=== PATIENT | male | born 1965 | race American Indian/Alaskan Native ===

== ENCOUNTER 2016-11-07 04:54 | Emergency (ER) | payer OTHER ==
[2016-11-07 05:39] LABS: Basophils % (Auto) 0.5 % (0.0-1.8); Eosinophils % (Auto) 2.4 % (0.0-4.3); Hemoglobin 11.9 gm/dl (11.8-15.2); Mean Corpuscular HGB Conc 33 % (32-34); Mean Corpuscular Hemoglobin 29 pg (28-32); Mean Corpuscular Volume 89 fl (84-94); Platelet Count 337 K/mm3 (140-440); Red Blood Count 4.05 M/mm3 (3.65-5.03); Red Cell Distribution Width 13.4 % (13.2-15.2); White Blood Count 9.9 K/mm3 (4.5-11.0)
[2016-11-07 05:43] LABS: Alanine Aminotransferase 23 units/L (7-56); Albumin/Globulin Ratio 1.9 %; Anion Gap 18 mmol/L; Bilirubin,Total < 0.20 mg/dL (0.1-1.2); Blood Urea Nitrogen 19 mg/dL (9-20); Calcium 10.4 mg/dL (8.4-10.2); Carbon Dioxide 27 mmol/L (22-30); Chloride 100.7 mmol/L (98-107); Glucose 184 mg/dL (75-100); Lipase 52 units/L (13-60); Potassium 4.5 mmol/L (3.6-5.0); Sodium 141 mmol/L (137-145); Total Protein 7.7 g/dL (6.3-8.2)
[2016-11-07 06:09] LABS: Bilirubin,Urine NEG (Negative); Blood,Urine NEG (Negative); Ketones,Urine NEG (Negative); Leukocyte Esterase,Urine NEG (Negative); Mucus,Urine FEW /HPF; Nitrite,Urine NEG (Negative); Protein,Urine <15 mg/dL mg/dL (Negative); Urobilinogen,Urine < 2.0 mg/dL (<2.0)
[2016-11-07 06:22] LABS: Alkaline Phosphatase 55 units/L (35-129)
[2016-11-07] MEDS ORDERED: SUBLIMAZE IV ONE (08:53)
[2016-11-07] MEDS ORDERED: ZOFRAN IV ONE (08:53)
[2016-11-07] MEDS ORDERED: PEPCID IV ONE (08:54)
[2016-11-07] MEDS ORDERED: NACL ONE (08:55)
--- NOTE | 2016-11-07 09:00 | Emergency Department Report ---
HPI - General Chief Complaint: Abdominal Pain Time Seen by Provider: 11/07/16 08:47 - HPI HPI: Room 24 The patient is a 51-year-old male presenting with a chief complaint of abdominal pain. Patient states pain began last night with pain in the right upper quadrant that then migrated to the epigastric region. Patient describes the pain as cramping in nature and associated with nausea and vomiting. Patient denies diarrhea or fever. Patient states pain has been constant since 03:00. The patient gives his pain a score of 10/10 Location: Abdomen Duration: Constant since 03:00 Quality: Cramping Severity:10/10 Modifying factors: [see above] Context: [see above] Mode of transportation: [not driving] ED Past Medical Hx - Past Medical History Previous Medical History?: Yes Hx Hypertension: Yes Hx Heart Attack/AMI: (patient states he has 3 stents in his heart) Hx Diabetes: Yes Additional medical history: CAD - Surgical History Past Surgical History?: Yes Additional Surgical History: 3 cardiac stents - Family History Family history: no significant - Social History Smoking Status: Never Smoker Substance Use Type: Alcohol (occasional) - Medications Home Medications: Home Medications Medication Instructions Recorded Confirmed Last Taken Type Rosuvastatin (Nf) [Crestor] 80 mg PO QHS 05/03/13 08/11/15 08/10/15 History AtorvaSTATin [Lipitor] 80 mg PO QHS tablet 08/13/15 Unknown Rx Clopidogrel [Plavix] 75 mg PO QDAY tablet 08/13/15 Unknown Rx Ezetimibe [Zetia] 10 mg PO QDAY tablet 08/13/15 Unknown Rx HYDROcodone/APAP 5-325 [[place] 1 each PO Q6H PRN #20 tablet 08/13/15 Unknown Rx 5-325 mg TAB] Lactulose [Cephulac] 20 gm PO QHS 30 Days 08/13/15 Unknown Rx Lisinopril [Zestril TAB] 20 mg PO QDAY tablet 08/13/15 Unknown Rx Metoprolol [Lopressor TAB] 25 mg PO DAILY tablet 08/13/15 Unknown Rx Pantoprazole [Protonix TAB] 40 mg PO QDAY tablet 08/13/15 Unknown Rx metFORMIN [Glucophage] 850 mg PO QDDIAB tablet 08/13/15 Unknown Rx Famotidine [Pepcid] 20 mg PO BID #30 tablet 05/07/17 Unknown Rx HYDROcodone/APAP 5-325 [[place] 1 - 2 each PO Q6HR PRN #14 tablet 11/07/16 Unknown Rx 5/325] Promethazine [Phenergan TAB] 25 mg PO Q6HR PRN #20 tab 11/07/16 Unknown Rx ED Review of Systems ROS: Stated complaint: ABD PAIN Other details as noted in HPI Comment: All other systems reviewed and negative Constitutional: denies: chills, fever Eyes: denies: eye pain, eye discharge, vision change ENT: denies: ear pain, throat pain Respiratory: denies: cough, shortness of breath, wheezing Cardiovascular: denies: chest pain, palpitations Endocrine: no symptoms reported Gastrointestinal: abdominal pain, nausea, vomiting Genitourinary: denies: urgency, dysuria Musculoskeletal: denies: back pain, joint swelling, arthralgia Skin: denies: rash, lesions Neurological: denies: headache, weakness, paresthesias Psychiatric: denies: anxiety, depression Hematological/Lymphatic: denies: easy bleeding, easy bruising Physical Exam - Physical Exam Vital Signs: Vital Signs 11/07/16 11/07/16 11/07/16 04:58 07:52 07:53 Temperature 98.1 F 98.4 F Pulse Rate 71 82 Respiratory 18 16 16 Rate Blood Pressure 147/96 Blood Pressure 163/89 [Right] O2 Sat by Pulse 100 97 97 Oximetry Physical Exam: GENERAL: The patient is well-developed well-nourished []. [] HEENT: Normocephalic. Atraumatic. Extraocular motions are intact. Patient has moist mucous membranes. NECK: Supple. Trachea midline CHEST/LUNGS: Clear to auscultation. There is no respiratory distress noted. HEART/CARDIOVASCULAR: Regular. There is no tachycardia. There is no gallop rub or murmur. ABDOMEN: Patient exhibits some voluntary guarding. Patient exhibits tenderness to palpation in the right upper quadrant epigastric region. Patient has normal bowel sounds. There is no abdominal distention. SKIN: There is no rash. There is no edema. There is no diaphoresis. NEURO: The patient is awake, alert, and oriented. The patient is cooperative. The patient has normal speech MUSCULOSKELETAL:There is no evidence of acute injury. ED Course Vital Signs 11/07/16 11/07/16 11/07/16 04:58 07:52 07:53 Temperature 98.1 F 98.4 F Pulse Rate 71 82 Respiratory 18 16 16 Rate Blood Pressure 147/96 Blood Pressure 163/89 [Right] O2 Sat by Pulse 100 97 97 Oximetry ED Medical Decision Making - Lab Data Result diagrams: 11/07/16 05:06 11/07/16 05:16 Laboratory Tests 11/07/16 11/07/16 11/07/16 05:06 05:16 05:30 WBC 9.9 RBC 4.05 Hgb 11.9 Hct 36.0 MCV 89 MCH 29 MCHC 33 RDW 13.4 Plt Count 337 Lymph % (Auto) 23.1 [place] % (Auto) 7.3 Eos % (Auto) 2.4 Baso % (Auto) 0.5 Lymph # 2.3 [place] # 0.7 Eos # 0.2 Baso # 0.1 Seg Neutrophils % 66.7 Seg Neutrophils # 6.6 Sodium 141 Potassium 4.5 Chloride 100.7 Carbon Dioxide 27 Anion Gap 18 BUN 19 Creatinine 1.0 Estimated GFR > 60 BUN/Creatinine Ratio 19.00 Glucose 184 H Calcium 10.4 H Total Bilirubin < 0.20 AST 19 ALT 23 Alkaline Phosphatase 55 Total Protein 7.7 Albumin 5.0 Albumin/Globulin Ratio 1.9 Lipase 52 Urine Color Yellow Urine Turbidity Clear Urine pH 5.0 Ur Specific [place] 1.021 Urine Protein <15 mg/dl Urine Glucose (UA) >=500 Urine Ketones Neg Urine Blood Neg Urine Nitrite Neg Urine Bilirubin Neg Urine Urobilinogen < 2.0 Ur Leukocyte Esterase Neg Urine WBC (Auto) 1.0 Urine RBC (Auto) 1.0 Urine Mucus Few - Radiology Data Radiology results: report reviewed (CT abdomen and pelvis), image reviewed (CT abdomen and pelvis) CT abdomen and pelvis (read by radiologist)-fluid-filled loops of bowel are identified throughout the abdomen. This could represent gastroenteritis or ileus. No convincing intestinal obstruction. No acute inflammatory process is appreciated. - Differential Diagnosis symptomatic cholelithiasis, pancreatitis, GERD, peptic ulcer disease, appen Critical care attestation.: If time is entered above; I have spent that time in minutes in the direct care of this critically ill patient, excluding procedure time. ED Disposition Clinical Impression: Acute abdominal pain Disposition: DISCHARGED TO HOME OR SELFCARE Is pt being admited?: No Does the pt Need Aspirin: No Condition: Stable Instructions: Acute Abdominal Pain (ED) Additional Instructions: Return to the emergency department immediately should you develop worsening symptoms, fever, inability to tolerate food or liquid or any other concerns. Prescriptions: Famotidine [Pepcid] 20 mg PO BID #30 tablet HYDROcodone/APAP 5-325 [[place] 5/325] 1 - 2 each PO Q6HR PRN #14 tablet PRN Reason: Pain Promethazine [Phenergan TAB] 25 mg PO Q6HR PRN #20 tab PRN Reason: Nausea Referrals: PRIMARY CARE, [Primary Care Provider] - 3-5 Days LIBBY WHITESIDE MD [Staff Physician] - 3-5 Days (Dr. 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 Please follow up with him for further evaluation) Time of Disposition: 10:25
[2016-11-07 09:27] VITALS: BP 134/77
--- NOTE | 2016-11-07 09:49 | Cat Scan Report ---
CT SCAN OF THE ABDOMEN AND PELVIS WITH CONTRAST: HISTORY: Right sided abdominal pain, epigastric abdominal pain. COMPARISON: 07/05/16. TECHNIQUE: Helical CT in 1.25mm intervals following IV contrast. Sagittal and coronal reconstructions. FINDINGS: The liver is normal in size and is without focal defect. No gallstones or biliary dilatation are noted. The spleen and pancreas demonstrate a normal size and attenuation with no evidence of abnormal mass. The kidneys are normal in size and position with no evidence of hydronephrosis or mass. The adrenal glands are normal. The abdominal aorta is normal. The small or large bowel loop so are normal caliber but appear fluid filled. No focal inflammation, transition point or bowel wall thickening. The appendix is not confidently identified. There is no evidence of peritoneal air or fluid. There is no evidence of any abnormal masses or fluid collections within the pelvis. No adenopathy is identified. The bladder is normal. IMPRESSION: Fluid filled loops of bowel are identified throughout the abdomen. This could represent gastroenteritis or ileus. No convincing intestinal obstruction. No acute inflammatory process is appreciated.
== END 2016-11-07 10:45 | disposition home or self-care (01) ==
LOC: ED 04:54
DX: R10.11 Right upper quadrant pain (principal); R10.13 Epigastric pain; I10 Essential (primary) hypertension; E11.9 Type 2 diabetes mellitus without complications
CPT/HCPCS: 36415; 74177; 80053; 81001; 83690; 85025; 96374; 96375; 99284; J2405; J3010; Q9967

== ENCOUNTER 2017-01-16 03:53 | Emergency (ER) | payer OTHER ==
[2017-01-16 04:33] VITALS: BP 108/60
[2017-01-16 05:28] LABS: Basophils % (Auto) 0.3 % (0.0-1.8); Eosinophils % (Auto) 1.5 % (0.0-4.3); Hematocrit 28.9 % (35.5-45.6); Hemoglobin 9.8 gm/dl (11.8-15.2); Mean Corpuscular HGB Conc 34 % (32-34); Mean Corpuscular Hemoglobin 30 pg (28-32); Mean Corpuscular Volume 87 fl (84-94); Platelet Count 301 K/mm3 (140-440); Red Blood Count 3.32 M/mm3 (3.65-5.03); Red Cell Distribution Width 13.1 % (13.2-15.2); White Blood Count 9.3 K/mm3 (4.5-11.0)
[2017-01-16 05:38] LABS: Anion Gap 23 mmol/L; Blood Urea Nitrogen 32 mg/dL (9-20); Calcium 8.9 mg/dL (8.4-10.2); Carbon Dioxide 20 mmol/L (22-30); Chloride 94.9 mmol/L (98-107); Glucose 124 mg/dL (75-100); Potassium 4.8 mmol/L (3.6-5.0); Sodium 133 mmol/L (137-145)
== END 2017-01-16 05:30 | disposition left against medical advice (07) ==
LOC: ED 03:53
DX: R07.9 Chest pain, unspecified (principal); Z53.21 Procedure and treatment not carried out due to patient leaving prior to being seen by health care provider
CPT/HCPCS: 36415; 80048; 82962; 84484; 85025; 93005; 93010

== ENCOUNTER 2017-02-13 06:57 | Emergency (ER) | payer OTHER ==
[2017-02-13 07:32] VITALS: BP 135/86
[2017-02-13 07:59] LABS: Basophils % (Auto) 0.7 % (0.0-1.8); Eosinophils % (Auto) 2.3 % (0.0-4.3); Hematocrit 32.4 % (35.5-45.6); Hemoglobin 10.5 gm/dl (11.8-15.2); Mean Corpuscular HGB Conc 33 % (32-34); Mean Corpuscular Hemoglobin 28 pg (28-32); Mean Corpuscular Volume 87 fl (84-94); Platelet Count 289 K/mm3 (140-440); Red Blood Count 3.72 M/mm3 (3.65-5.03); Red Cell Distribution Width 12.9 % (13.2-15.2); White Blood Count 6.2 K/mm3 (4.5-11.0)
[2017-02-13 08:42] LABS: Anion Gap 18 mmol/L; BUN/Creatinine Ratio 26.25; Blood Urea Nitrogen 21 mg/dL (9-20); Calcium 10.1 mg/dL (8.4-10.2); Carbon Dioxide 26 mmol/L (22-30); Chloride 100.9 mmol/L (98-107); Glucose 124 mg/dL (75-100); Potassium 4.6 mmol/L (3.6-5.0); Sodium 140 mmol/L (137-145)
--- NOTE | 2017-02-13 09:42 | Emergency Department Report ---
HPI - General Chief Complaint: Chest Pain Time Seen by Provider: 02/13/17 09:26 ED Past Medical Hx - Past Medical History Previous Medical History?: Yes Hx Hypertension: Yes Hx Heart Attack/AMI: (patient states he has 3 stents in his heart) Hx Congestive Heart Failure: No Hx Diabetes: Yes Hx GERD: Yes Hx Asthma: No Hx COPD: No Hx HIV: No Additional medical history: CAD - Surgical History Past Surgical History?: Yes Additional Surgical History: 3 cardiac stents - Social History Smoking Status: Never Smoker Substance Use Type: Alcohol - Medications Home Medications: Home Medications Medication Instructions Recorded Confirmed Last Taken Type Rosuvastatin (Nf) [Crestor] 80 mg PO QHS 05/03/13 08/11/15 08/10/15 History AtorvaSTATin [Lipitor] 80 mg PO QHS tablet 08/13/15 Unknown Rx Clopidogrel [Plavix] 75 mg PO QDAY tablet 08/13/15 Unknown Rx Ezetimibe [Zetia] 10 mg PO QDAY tablet 08/13/15 Unknown Rx HYDROcodone/APAP 5-325 [[place] 1 each PO Q6H PRN #20 tablet 08/13/15 Unknown Rx 5-325 mg TAB] Lactulose [Cephulac] 20 gm PO QHS 30 Days 08/13/15 Unknown Rx Lisinopril [Zestril TAB] 20 mg PO QDAY tablet 08/13/15 Unknown Rx Metoprolol [Lopressor TAB] 25 mg PO DAILY tablet 08/13/15 Unknown Rx Pantoprazole [Protonix TAB] 40 mg PO QDAY tablet 08/13/15 Unknown Rx metFORMIN [Glucophage] 850 mg PO QDDIAB tablet 08/13/15 Unknown Rx Famotidine [Pepcid] 20 mg PO BID #30 tablet 11/07/16 Unknown Rx HYDROcodone/APAP 5-325 [[place] 1 - 2 each PO Q6HR PRN #14 tablet 11/07/16 Unknown Rx 5/325] Promethazine [Phenergan TAB] 25 mg PO Q6HR PRN #20 tab 11/07/16 Unknown Rx ED Review of Systems ROS: Stated complaint: CHEST PAIN Other details as noted in HPI Physical Exam - Physical Exam Vital Signs: Vital Signs 02/13/17 07:30 Temperature 98.2 F Pulse Rate 57 L Respiratory 16 Rate Blood Pressure 135/86 O2 Sat by Pulse 100 Oximetry ED Course Vital Signs 02/13/17 07:30 Temperature 98.2 F Pulse Rate 57 L Respiratory 16 Rate Blood Pressure 135/86 O2 Sat by Pulse 100 Oximetry ED Medical Decision Making - Lab Data Result diagrams: 02/13/17 07:44 02/13/17 07:44 - Medical Decision Making I was unable to evaluate this patient. The left the room prior to my evaluation. He did have an unremarkable EKG and his labs were unremarkable. Critical care attestation.: If time is entered above; I have spent that time in minutes in the direct care of this critically ill patient, excluding procedure time. ED Disposition Clinical Impression: Patient left without being seen Disposition: Z07 ELOPED Is pt being admited?: No Condition: Stable Referrals: PRIMARY CARE, [Primary Care Provider] - 3-5 Days
== END 2017-02-13 09:41 | disposition left against medical advice (07) ==
LOC: ED 06:57
DX: R07.9 Chest pain, unspecified (principal); I10 Essential (primary) hypertension
CPT/HCPCS: 36415; 80048; 84484; 85025; 93005; 93010

== ENCOUNTER 2017-03-16 04:56 | Emergency (ER) | payer OTHER ==
[2017-03-16 05:34] LABS: Basophils % (Auto) 0.5 % (0.0-1.8); Eosinophils % (Auto) 1.5 % (0.0-4.3); Hematocrit 31.5 % (35.5-45.6); Hemoglobin 10.8 gm/dl (11.8-15.2); Mean Corpuscular HGB Conc 34 % (32-34); Mean Corpuscular Hemoglobin 29 pg (28-32); Mean Corpuscular Volume 84 fl (84-94); Platelet Count 355 K/mm3 (140-440); Red Blood Count 3.75 M/mm3 (3.65-5.03); Red Cell Distribution Width 12.5 % (13.2-15.2); White Blood Count 5.7 K/mm3 (4.5-11.0)
[2017-03-16 05:56] LABS: Alanine Aminotransferase 81 units/L (7-56); Albumin 4.3 g/dL (3.9-5); Albumin/Globulin Ratio 1.3 %; Alkaline Phosphatase 58 units/L (35-129); Anion Gap 22 mmol/L; Blood Urea Nitrogen 12 mg/dL (9-20); Calcium 10.4 mg/dL (8.4-10.2); Carbon Dioxide 21 mmol/L (22-30); Chloride 104.3 mmol/L (98-107); Glucose 95 mg/dL (75-100); Lipase 55 units/L (13-60); Potassium 4.5 mmol/L (3.6-5.0); Sodium 143 mmol/L (137-145); Total Protein 7.5 g/dL (6.3-8.2)
[2017-03-16 06:41] LABS: Bilirubin,Urine NEG (Negative); Blood,Urine NEG (Negative); Ketones,Urine NEG (Negative); Leukocyte Esterase,Urine NEG (Negative); Mucus,Urine FEW /HPF; Nitrite,Urine NEG (Negative); Protein,Urine <15 mg/dL mg/dL (Negative); Urobilinogen,Urine < 2.0 mg/dL (<2.0)
[2017-03-16 09:57] VITALS: BP 148/89
[2017-03-16] MEDS ORDERED: NORCO 5/325 PO ONE (10:12)
--- NOTE | 2017-03-16 10:19 | Emergency Department Report ---
HPI - General Chief Complaint: Abdominal Pain Time Seen by Provider: 03/16/17 09:44 - HPI HPI: This is a 52-year-old [place] male presents to the emergency department, dropped off by family member, with complaint of right-sided abdominal pain that started yesterday. He denies any nausea, vomiting, fever, dysuria. Patient says that he has a history of pain in this region and has been evaluated multiple times including multiple CT scans and endoscopy and was told that he has a "ulcer." He also says that there was "something on my kidney." He has not taken anything for her symptoms prior to presentation. His primary care physician is Dr. Kamryn Bullock and his hydrogenation operator is a Dr. Sheriff through [place]. He has a past medical history of diabetes, coronary artery disease with 3 stents, hypertension. No recent travel or sick contacts at home. ED Past Medical Hx - Past Medical History Previous Medical History?: Yes Hx Hypertension: Yes Hx Heart Attack/AMI: (patient states he has 3 stents in his heart) Hx Congestive Heart Failure: No Hx Diabetes: Yes Hx GERD: Yes Hx Asthma: No Hx COPD: No Hx HIV: No Additional medical history: CAD - Surgical History Past Surgical History?: Yes Additional Surgical History: 3 cardiac stents - Social History Smoking Status: Never Smoker Substance Use Type: Alcohol - Medications Home Medications: Home Medications Medication Instructions Recorded Confirmed Last Taken Type Rosuvastatin (Nf) [Crestor] 80 mg PO QHS 05/03/13 08/11/15 08/10/15 History AtorvaSTATin [Lipitor] 80 mg PO QHS tablet 08/13/15 Unknown Rx Clopidogrel [Plavix] 75 mg PO QDAY tablet 08/13/15 Unknown Rx Ezetimibe [Zetia] 10 mg PO QDAY tablet 08/13/15 Unknown Rx Lactulose [Cephulac] 20 gm PO QHS 30 Days 08/13/15 Unknown Rx Lisinopril [Zestril TAB] 20 mg PO QDAY tablet 08/13/15 Unknown Rx Metoprolol [Lopressor TAB] 25 mg PO DAILY tablet 08/13/15 Unknown Rx Pantoprazole [Protonix TAB] 40 mg PO QDAY tablet 08/13/15 Unknown Rx metFORMIN [Glucophage] 850 mg PO QDDIAB tablet 08/13/15 Unknown Rx Famotidine [Pepcid] 20 mg PO BID #30 tablet 11/07/16 Unknown Rx HYDROcodone/APAP 5-325 [[place] 1 - 2 each PO Q6HR PRN #14 tablet 11/07/16 Unknown Rx 5/325] Promethazine [Phenergan TAB] 25 mg PO Q6HR PRN #20 tab 11/07/16 Unknown Rx HYDROcodone/APAP 5-325 [[place] 1 each PO Q6H PRN #10 tablet 03/16/17 Unknown Rx 5-325 mg TAB] ED Review of Systems ROS: Stated complaint: RIGHT SIDE PAIN Other details as noted in HPI Comment: All other systems reviewed and negative Constitutional: denies: chills, fever Eyes: denies: eye pain, eye discharge, vision change ENT: denies: ear pain, throat pain Respiratory: denies: cough, shortness of breath, wheezing Cardiovascular: denies: chest pain, palpitations Gastrointestinal: abdominal pain. denies: nausea, vomiting Genitourinary: denies: urgency, dysuria Musculoskeletal: denies: back pain, joint swelling, arthralgia Skin: denies: rash, lesions Neurological: denies: headache, weakness, paresthesias Physical Exam - Physical Exam Vital Signs: Vital Signs 03/16/17 03/16/17 03/16/17 05:03 09:56 09:57 Temperature 98 F 98.3 F Pulse Rate 95 H 88 Respiratory 18 16 16 Rate Blood Pressure 149/88 Blood Pressure 148/89 [Right] O2 Sat by Pulse 98 98 98 Oximetry Physical Exam: GENERAL: The patient is well-developed well-nourished. HENT: Normocephalic. Atraumatic. Patient has moist mucous membranes. EYES: Extraocular motions are intact. Pupils equal reactive to light bilaterally. NECK: Supple. Trachea is midline. CHEST/LUNGS: Clear to auscultation. There is no respiratory distress noted. HEART/CARDIOVASCULAR: Regular. There is no tachycardia. There is no gallop rub or murmur. ABDOMEN: Abdomen is soft, nontender. Unable to reproduce abdominal and/or flank pain palpation. No guarding or rebound tenderness. Patient has normal bowel sounds. There is no abdominal distention. SKIN: There is no rash. There is no edema. There is no diaphoresis. NEURO: The patient is awake, alert, and oriented. The patient is cooperative. The patient has no focal neurologic deficits. The patient has normal speech. MUSCULOSKELETAL: There is no tenderness or deformity. There is no limitation range of motion. There is no evidence of acute injury. ED Course Vital Signs 03/16/17 03/16/17 03/16/17 05:03 09:56 09:57 Temperature 98 F 98.3 F Pulse Rate 95 H 88 Respiratory 18 16 16 Rate Blood Pressure 149/88 Blood Pressure 148/89 [Right] O2 Sat by Pulse 98 98 98 Oximetry ED Medical Decision Making - Lab Data Result diagrams: 03/16/17 05:20 03/16/17 05:20 - Radiology Data Radiology results: report reviewed, image reviewed interpreted by me: Abdominal x-ray does not show any acute process. Nonspecific nonobstructive bowel gas. ULTRASOUND RENAL BILATERAL INDICATION: Flank pain. COMPARISON: 07/05/2016 CT. FINDINGS: Renal sonography demonstrates top normal cortical echogenicity. Grossly preserved contours. No hydronephrosis. RIGHT KIDNEY is 10.5 x 4.9 x 5.4 cm with cortical thickness of 1.7 cm. Approximately 8 mm interpolar non-shadowing echogenicity, not excluded cortical in this patient with duplicated intrarenal collecting system also questioned. LEFT KIDNEY is 9.8 x 6.2 x 6.4 cm with cortical thickness of 1.5 cm. Urinary bladder grossly within normal limits. CONCLUSION: No acute renal sonographic abnormality in this patient with possible medullary nephrocalcinosis, as described. Please correlate. Thank you for the opportunity to participate in this patient's care. Transcribed By: RS Dictated By: ALEAH KELLY MD Electronically Authenticated By: ALEAH KELLY MD Signed Date/Time: 03/16/17 1130 ULTRASOUND ABDOMEN LIMITED INDICATION: Abdominal pain. COMPARISON: None similar. FINDINGS: Right upper quadrant ultrasound demonstrates unremarkable liver. No gallstones or pericholecystic fluid. Gallbladder wall thickness is 1.8 mm. Negative sonographic Collado's sign. Common bile duct is 3.6 mm. Imaged pancreas, nonaneurysmal abdominal aorta and IVC appear within normal limits. Right kidney is 10.5 x 4.9 x 5.4 cm with cortical thickness of 1.7 cm. Top normal renal cortical echogenicity. Duplicated intrarenal collecting system not entirely excluded. CONCLUSION: Normal right upper quadrant sonogram, as described. Thank you for the opportunity to participate in this patient's care. Transcribed By: RS Dictated By: ALEAH KELLY MD Electronically Authenticated By: ALEAH KELLY MD Signed Date/Time: 03/16/17 1121 - Medical Decision Making 52-year-old male presents to the emergency department with acute on chronic abdominal discomfort. His abdominal examination is rather benign. Vital signs stable including being afebrile. His course. Most labs are unremarkable except for a slight elevation in the transaminases. Abdominal x-ray shows nonspecific nonobstructive bowel gas. A bilateral renal ultrasound was done to evaluate his kidneys and a upper abdominal ultrasound was also done. Both of these ultrasound examinations were normal without any significant acute process or etiology of his discomfort. Patient was given a dose of pain medication and upon reevaluation he is feeling improved. He has good follow up with both primary care and gastroenterology. He has already had multiple CT scans of the abdomen and pelvis within the past 6 months and therefore I did not feel that any further CT imaging was warranted at this time. He will follow up with his primary care and hydrogenation operator and will return to the ER with any worsening of symptoms or any acute distress. - Differential Diagnosis cholecystitis, cholelithiasis, hepatitis, pancreatitis, gastritis Critical Care Time: No Critical care attestation.: If time is entered above; I have spent that time in minutes in the direct care of this critically ill patient, excluding procedure time. ED Disposition Clinical Impression: Elevated LFTs Abdominal pain Qualifiers: Abdominal location: unspecified location Qualified Code(s): R10.9 - Unspecified abdominal pain Disposition: DC- TO HOME OR SELFCARE Is pt being admited?: No Condition: Stable Instructions: Abdominal Pain (ED) Additional Instructions: Please follow-up with your primary care physician as well as your hydrogenation operator as soon as possible. Return to the emergency Department with any worsening of your symptoms or any acute distress. Continue with your Protonix. You have been prescribed a medication that is sedating and therefore should not be taken prior to driving, working, and responsible for children and in no way should be mixed with alcohol of any quantity. Prescriptions: HYDROcodone/APAP 5-325 [[place] 5-325 mg TAB] 1 each PO Q6H PRN #10 tablet PRN Reason: Pain Referrals: KAMRYN BULLOCK MD [Primary Care Provider] - [place] Forms: Work/School Release Form(ED) Time of Disposition: 12:14
--- NOTE | 2017-03-16 10:27 | XRay Report ---
ABDOMEN TWO VIEWS: 03/16/17 10:12:00 CLINICAL: Abdominal pain. FINDINGS: Supine upright views demonstrate a normal bowel gas pattern with a moderately large volume of stool throughout the colon and in the rectum. Minimal distended small bowel and no air-fluid levels. No pneumoperitoneum. No mass or suspicious calcifications. The bones and soft tissues are normal. IMPRESSION: Negative abdomen.
--- NOTE | 2017-03-16 11:24 | Ultrasound Report ---
ULTRASOUND ABDOMEN LIMITED INDICATION: Abdominal pain. COMPARISON: None similar. FINDINGS: Right upper quadrant ultrasound demonstrates unremarkable liver. No gallstones or pericholecystic fluid. Gallbladder wall thickness is 1.8 mm. Negative sonographic Collado's sign. Common bile duct is 3.6 mm. Imaged pancreas, nonaneurysmal abdominal aorta and IVC appear within normal limits. Right kidney is 10.5 x 4.9 x 5.4 cm with cortical thickness of 1.7 cm. Top normal renal cortical echogenicity. Duplicated intrarenal collecting system not entirely excluded. CONCLUSION: Normal right upper quadrant sonogram, as described. Thank you for the opportunity to participate in this patient's care.
--- NOTE | 2017-03-16 11:33 | Ultrasound Report ---
ULTRASOUND RENAL BILATERAL INDICATION: Flank pain. COMPARISON: 07/05/2016 CT. FINDINGS: Renal sonography demonstrates top normal cortical echogenicity. Grossly preserved contours. No hydronephrosis. RIGHT KIDNEY is 10.5 x 4.9 x 5.4 cm with cortical thickness of 1.7 cm. Approximately 8 mm interpolar non-shadowing echogenicity, not excluded cortical in this patient with duplicated intrarenal collecting system also questioned. LEFT KIDNEY is 9.8 x 6.2 x 6.4 cm with cortical thickness of 1.5 cm. Urinary bladder grossly within normal limits. CONCLUSION: No acute renal sonographic abnormality in this patient with possible medullary nephrocalcinosis, as described. Please correlate. Thank you for the opportunity to participate in this patient's care.
== END 2017-03-16 12:24 | disposition home or self-care (01) ==
LOC: ED 04:56
DX: R79.89 Other specified abnormal findings of blood chemistry (principal); R10.9 Unspecified abdominal pain; I10 Essential (primary) hypertension; E11.9 Type 2 diabetes mellitus without complications; K21.9 Gastro-esophageal reflux disease without esophagitis; Z95.1 Presence of aortocoronary bypass graft
CPT/HCPCS: 36415; 74020; 76705; 76770; 80053; 81001; 83690; 85025

== ENCOUNTER 2018-08-14 10:28 | Emergency (ER) | payer OTHER ==
--- NOTE | 2018-08-14 10:52 | Emergency Department Report ---
Chief Complaint: Headache Stated Complaint: HEAD PAIN/RAPID HEART BEAT - HPI History of Present Illness: To ER co rapid heart rate and dizziness RN asked for VS and EKG denies cp or sob. denies history of the same MSE screening note: Focused history and physical exam performed. Due to findings the following was ordered: ED Medical Decision Making - Lab Data Result diagrams: 08/14/18 11:33 08/14/18 11:33 ED Disposition for MSE Condition: Stable
[2018-08-14 10:53] VITALS: BP 108/34
[2018-08-14 12:02] LABS: Hematocrit 28.2 % (35.5-45.6); Hemoglobin 9.3 gm/dl (11.8-15.2); Mean Corpuscular HGB Conc 33 % (32-34); Mean Corpuscular Volume 95 fl (84-94); Platelet Count 450 K/mm3 (140-440); Red Blood Count 2.98 M/mm3 (3.65-5.03)
[2018-08-14 12:17] LABS: Alanine Aminotransferase 17 units/L (7-56); Albumin 4.2 g/dL (3.9-5); BUN/Creatinine Ratio 12; Blood Urea Nitrogen 12 mg/dL (9-20); Calcium 9.7 mg/dL (8.4-10.2); Hemolysis Index 2
== END 2018-08-14 12:39 | disposition left against medical advice (07) ==
LOC: ED 10:28
DX: R00.0 Tachycardia, unspecified (principal); R42 Dizziness and giddiness
CPT/HCPCS: 36415; 80053; 84443; 84484; 85027; 93005; 93010; 99283